=== PATIENT | female | born 1990 | race Hispanic/Latino ===

== ENCOUNTER 2016-11-08 21:46 | Emergency (ER) | payer MEDICAID, OTHER ==
[2016-11-08 21:54] VITALS: BP 127/89; PULSE 80; RESP 18; TEMP 99.1; O2SAT 100
[2016-11-08] MEDS ORDERED: Sodium Chloride 0.9% 1,000 ML IV STA ×2 (22:12→23:17)
--- NOTE | 2016-11-08 22:15 | ED PDOC ---
HPI: General Adult Time Seen by Provider: 11/08/16 21:55 Chief Complaint (Nursing): Shortness Of Breath Chief Complaint (Provider): generalized weakness History Per: Patient History/Exam Limitations: no limitations Onset/Duration Of Symptoms: Days (2) Current Symptoms Are (Timing): Still Present Additional History Per: Patient Additional Complaint(s): 26 y/o female presents for eval of generalized weakness x 2 days. Associated dizziness, shortness of breath that began today while at class. Patient notes diarrhea tuesday and tuesday. Denies fever, headache, nauesa/vomiting, extremity numbness/weakness, chest pain, palpitations, abdominal pain, changes in bowel movements, urinary symptoms, recent travel, sick contacts. Past Medical History Reviewed: Historical Data, Nursing Documentation, Vital Signs Vital Signs: Last Vital Signs Temp 99.1 F 11/08/16 21:50 Pulse 80 11/08/16 21:50 Resp 18 11/08/16 21:58 BP 127/89 11/08/16 21:50 Pulse Ox 100 11/09/16 01:53 - Medical History PMH: No Chronic Diseases - Surgical History Surgical History: No Surg Hx - Family History Family History: States: Unknown Family Hx - Living Arrangements Living Arrangements: Alone - Social History Current smoker - smoking cessation education provided: No Alcohol: Occasional Drugs: Denies - Allergies Allergies/Adverse Reactions: Allergies Allergy/AdvReac Type Severity Reaction Status Date / Time gluten Allergy SWELLING Verified 11/08/16 21:50 Review of Systems ROS Statement: Except As Marked, All Systems Reviewed And Found Negative Constitutional: Positive for: Weakness Respiratory: Positive for: Shortness of Breath Neurological: Positive for: Dizziness Physical Exam - Reviewed Nursing Documentation Reviewed: Yes Vital Signs Reviewed: Yes - Physical Exam Appears: Positive for: Well, Non-toxic, No Acute Distress Head Exam: Positive for: ATRAUMATIC, NORMAL INSPECTION, NORMOCEPHALIC Skin: Positive for: Normal Color Eye Exam: Positive for: Normal appearance, EOMI, PERRL ENT: Positive for: Normal ENT Inspection Cardiovascular/Chest: Positive for: Regular Rate, Rhythm Respiratory: Positive for: Normal Breath Sounds Gastrointestinal/Abdominal: Positive for: Normal Exam Back: Positive for: Normal Inspection Extremity: Positive for: Normal ROM Neurologic/Psych: Positive for: Alert, Oriented - Laboratory Results Result Diagrams: 11/08/16 22:37 11/08/16 22:37 - ECG ECG: Positive for: Viewed By Me (reviewed by ED attending) ECG Rhythm: Positive for: Sinus Rhythm (PACs) O2 Sat by Pulse Oximetry: 100 Pulse Ox Interpretation: Normal - Radiology X-Ray: Viewed By Me X-Ray Interpretation: No Acute Disease - Progress ED Course And Treament: labs, urine, chest xray, ekg, IV fluids Sodium 125. Findings discussed with patient, who states she has a 32 ounce bottle of water which she refills approx 6 times daily. Case discussed with Dr. Castellanos; will hydrate with NS, and D5NS maintenance. 1:45 Patient states she feels much better. Patient educated on findings, discharged with instructions to follow up PMD( patient has appt scheduled in 2 weeks, advised to change for 2-3 days). Advised Pedialyte, gatorade, avoid overuse of plain water. Return to ED for worsening/concerning symptoms. Disposition - Clinical Impression Clinical Impression: Hyponatremia - Patient ED Disposition Is Patient to be Admitted: No Counseled Patient/Family Regarding: Studies Performed, Diagnosis, Need For Followup - Disposition Disposition: Routine/Home Disposition Time: 01:49 Condition: IMPROVED Additional Instructions: Follow up with primary doctor in 2-3 days. Drink plenty of pedialyte/gatorade. Return to ED for worsening/concerning symptoms. Instructions: Hyponatremia (ED)
[2016-11-08 22:51] LABS: BASO # 0.1 K/uL (0.0-0.2); BASO % 0.8 % (0.0-2.0); EOS % 0.5 % (0.0-4.0); HEMATOCRIT 37.8 % (34.0-47.0); LYMPH # 3.1 K/uL (1.0-4.3); LYMPH % 43.2 % (20.0-40.0); MEAN CELL VOLUME 91.5 fl (81.0-99.0); MEAN CORPUSCULAR HEMOGLOBIN 30.6 pg (27.0-31.0); MEAN CORPUSCULAR HGB CONC 33.4 g/dL (33.0-37.0); MEAN PLATELET VOLUME 8.2 fl (7.2-11.7); MONO # 0.5 K/uL (0.0-0.8); MONO % 6.5 % (0.0-10.0); NEUT # 3.5 K/uL (1.8-7.0); RBC URINE 1 /hpf (0-3); URINE BILIRUBIN NEGATIVE (NEGATIVE); URINE BLOOD NEGATIVE (NEGATIVE); URINE COLOR STRAW (YELLOW); URINE GLUCOSE (UA) NEG (Normal); URINE KETONE 20 mg/dL (NEGATIVE); URINE LEUKOCYTE ESTERASE NEG Leu/uL (Negative); URINE PROTEIN NEGATIVE (NEGATIVE); URINE UROBILINOGEN 0.2-1.0 mg/dL (0.2-1.0); WBC URINE 1 /hpf (0-5); WHITE BLOOD COUNT 7.2 K/uL (4.8-10.8)
[2016-11-08 23:03] LABS: ALB/GLOB RATIO 1.6 (1.0-2.1); ALKALINE PHOSPHATASE 90 U/L (38-126); ALT/SGPT 46 U/L (9-52); AST/SGOT 46 U/L (14-36); BILIRUBIN,TOTAL 0.9 mg/dl (0.2-1.3); BLOOD UREA NITROGEN 6 mg/dl (7-17); CALCIUM 9.6 mg/dL (8.4-10.2); CARBON DIOXIDE 21 mmol/L (22-30); CHLORIDE 93 mmol/L (98-107); GFR AFRICAN-AMERICAN > 60; GLUCOSE,RANDOM 89 mg/dL (65-105); POTASSIUM 3.5 MMOL/L (3.6-5.0); SODIUM 125 mmol/l (132-148); TOTAL PROTEIN 7.6 G/DL (6.3-8.2)
--- NOTE | 2016-11-09 12:34 | RAD ---
HISTORY: Shortness of breath COMPARISON: No prior. TECHNIQUE: Chest PA and lateral FINDINGS: LUNGS: No active pulmonary disease. Hyperinflation of uncertain etiology/significance PLEURA: No significant pleural effusion identified. No pneumothorax apparent. CARDIOVASCULAR: Normal. OSSEOUS STRUCTURES: No significant abnormalities. VISUALIZED UPPER ABDOMEN: Normal. OTHER FINDINGS: None. IMPRESSION: No active disease.
--- NOTE | 2016-11-12 11:33 | CARD ---
APPROVED REPORT EKG Measurement Heart [id number] CT 140P45 [id number] <Conclusion> Sinus rhythm with premature atrial complexes Otherwise normal ECG
== END 2016-11-09 02:08 | disposition home or self-care (01) ==
LOC: H.ER 21:46
DX: E87.1 Hypo-osmolality and hyponatremia (principal)
CPT/HCPCS: 71020; 80053; 81003; 81025; 82948; 84443; 85025; 93005; 96360; 96361; 99285; J7040; J7042